=== PATIENT | female | born 1990 | race Caucasian/White ===

== ENCOUNTER → 2022-03-02 12:12 | Outpatient (CLI) | payer OTHER, SELFPAY ==
--- NOTE | 2022-03-02 | DI.US.S_ITS ---
PROCEDURE: US OB >= 14 WEEKS FETUS INDICATIONS: 20 WEEK ANATOMY OUTSIDE/PRIOR DATING DATA: Last menstrual period (LMP): October 02, 2021. LMP-based estimated date of delivery (KLAUS): July 09, 2022. First dating scan (date): March 02, 2022. Estimated date of delivery (KLAUS) from first dating scan: July 07, 2022. TECHNIQUE: Real-time scanning was performed of the fetus, with image documentation and biometric measurements. COMPARISON: None. FINDINGS: General: A single living intrauterine gestation is present. Presentation: Vertex. Placenta: Placental position is posterior , without previa. Amniotic fluid index: 14.8 cm, normal range is 5-24 cm. Single deepest vertical pocket is 5 cm. heart rate: 143 beats per minute. Maternal cervical canal: 3.4 cm long. Normal lower limit is 2.5 cm. biometrics: Biparietal diameter: 5.2 cm Head circumference: 19.6 cm Abdominal circumference: 16.6 cm Femur length: 3.8 cm Composite gestational age from present scan: 21 weeks, 6 days Estimated weight and percentile: 455 g; 59th percentile Anatomic survey: Neuro: Ventricles are non-dilated at less than 10 mm. Cisterna magna is normal at 3-11 mm. Cerebellum is normal in size and morphology. Nuchal skin fold: Normal at less than 6 mm between 14-21 weeks gestational age. Face: Nose and lips, facial profile are normal. Spine: No evidence for spina bifida. Heart: 4-chambered heart is present, with normal ventricular outflow tracts. Diaphragm: Diaphragm is intact. Stomach: Left-sided stomach is present. Kidneys: No hydronephrosis. Normal is less than 5 mm in 2nd trimester, less than 7 mm in 3rd trimester. Cord: 3-vessel cord has orthotopic insertion. Bladder: Normal in size. Extremities: All 4 extremities identified. IMPRESSION: Live single intrauterine gestation as detailed above. We strive to produce accurate, complete, and clear reports of imaging services. To assist us in improving patient care, this report was composed using standard report templates and voice recognition software. Therefore, it may contain abnormal punctuation, insertions and/or omissions. Occasional wrong-word or sound-alike substitutions may occur. Though we review the report and make efforts to correct it, we do recommend that the report be read carefully in proper context to recognize any text inaccuracies. Dictated by: Jesus Vasqeuz M.D. on 03/05/2022 at 13:57 Approved by: Jesus Vasquez M.D. on 03/05/2022 at 14:00
== END ==
PROVIDERS: Family Provider Family Medicine; Referring Provider Nurse Practitioner Obstetrics & Gynecology; Visit Provider Nurse Practitioner Obstetrics & Gynecology
DX: Z36.89 Encounter for other specified antenatal screening (principal); Z3A.21 21 weeks gestation of pregnancy
CPT/HCPCS: 76811

== ENCOUNTER → 2022-06-11 15:21 | Outpatient (ROUT) | payer OTHER, SELFPAY | PROVIDERS: Family Provider Family Medicine; Visit Provider Nurse Practitioner Obstetrics & Gynecology | DX: Z34.90 Encounter for supervision of normal pregnancy, unspecified, unspecified trimester (principal); Z36.85 Encounter for antenatal screening for Streptococcus B; Z3A.36 36 weeks gestation of pregnancy | CPT/HCPCS: 87081 ==

== ENCOUNTER 2022-07-10 03:47 | Inpatient (IN) | payer OTHER, SELFPAY ==
--- NOTE | 2022-07-10 04:11 | P.HPOB_ITS ---
OB HPI Date/Time Date of admission: 07/10/22 Date Patient Seen: 07/10/22 Time Patient Seen: 04:11 History of Present Condition Chief complaint: LABOR : 1 Para: 0 Estimated Date of Delivery: 07/09/22 Estimated Gestational Age (weeks): 40.1 Narrative: Amira Abraham is a 31 year old female @ [id number] by LMP and 10wk US who presents for evaluation of labor. She was having contractions ~five minutes apart tonight, had SROM of clear or slightly yellow tinged fluid at 0130. After SROM, contractions increased to every two to three minutes. Arrives with her [place]. Coping well and desires unmedicated labor. Uncomplicated course of care. History of Present care: good care, initiated at week # (10wk), number of visits (9) and pounds weight gain (40) Dating criteria: LMP confirmed by 1st trimester US Ultrasounds: normal 1st trimester US and normal mid trimester US Obstetrical complications: none Medical complications: none Preadmission Labs Blood type: O (+) positive -: Antibody screen: negative, GBS status: negative, HBsAG: negative, HIV: negative and RPR/VDLR: negative -: Chlamydia screen: not detected and Gonorrhea screen: not detected -: Rubella: immune and Varicella: immune HCT: 38.8 HCAB: negative PAP: Normal Cell-free DNA: Negative 1 hr GTT: 113 Evaluation Evaluation Baseline heart rate: 130 Variability: Moderate (11-25) monitor accelerations: Present Contraction Frequency (minutes): 2 Uterine Contraction Intensity: Moderate Status: Category ll (overall reassuring) Dilation (cm): 4 Effacement (%): 80 Dilation: 3-4 cm Effacement: >/=80% station: -2 Comments: initially 2 decelerations, toco not picking up, unable to assess, resolved with position change [facility] Medical History (Updated 07/10/22 @ 04:40 by Keyana Dias CNM) Anxiety Left knee injury Surgical History (Updated 07/10/22 @ 04:40 by Keyana Dias CNM) History of tonsillectomy Family History (Updated 07/10/22 @ 04:40 by Keyana Dias CNM) Mother Hypertension Social History (Updated 07/10/22 @ 04:40 by Keyana Dias CNM) marital status: household members: spouse lives independently: Yes housing: house Smoking Status: Never smoker Meds Home Medications and Allergies Home Medications Medication Instructions Recorded Confirmed Type #2 See Rx Instructions .Route .COMPLEX 07/10/22 07/10/22 History Allergies Allergy/AdvReac Type Severity Reaction Status Date / Time No Known Drug Allergies Allergy Unverified 07/10/22 04:42 OB Exam Resp Effort & Inspection: normal respiratory effort Auscultation: clear to auscultation bilaterally Cardio Rate: regular rate Rhythm: regular rhythm Presentation: vertex Objective Labs Result Diagrams: 07/10/22 04:30 07/10/22 04:30 Assessment and Plan Assessment and Plan Assessment and Plan narrative: Assessment: [place] Active labor SROM x 3 hrs without sx of infection No indication for GBS prophylaxis Elevated BP without dx of HTN Category I tracing Plan: Admit, routine orders with preeclampsia panel Intermittent auscultation Labor support PRN Reassess in 4 hours
[2022-07-10 04:25] LABS: COVID19 -Nasal RAPID Negative (Negative)
[2022-07-10 04:45] VITALS: BP 140/88
[2022-07-10 04:49] LABS: Add Manual Diff / Slide Review NO; Basophils Absolute Auto 0 /uL (0-100); Basophils Percent Auto 0.3 % (0-2); Eosinophils Absolute Auto 0 /uL (0-450); Eosinophils Percent Auto 0.2 % (2-4); Hematocrit 37.8 % (36-46); Hemoglobin 12.8 g/dL (12.0-16.0); Lymphocytes Absolute Auto 1100 /uL (1100-4500); Lymphocytes Percent Auto 9.7 % (25-40); Mean Corpuscular HGB Conc 33.8 % (30-36); Mean Corpuscular Hemoglobin 29.7 PG (26-34); Mean Corpuscular Volume 88.1 fL (80-100); Monocytes Absolute Auto 600 /uL (0-900); Monocytes Percent Auto 5.3 % (3-14); Neutrophils Absolute Auto 9800 /uL (1500-7000); Neutrophils Percent Auto 84.5 % (50-75); Platelet Count 260 X10^3/uL (150-400); Red Blood Cell Count 4.29 X10^6/uL (4.0-5.2); Red Cell Distribution Width 13.1 % (11.6-14.8); White Blood Cell Count 11.6 X10^3/uL (4.5-11.0)
[2022-07-10 04:57] LABS: Aspartate Aminotransferase 25 IU/L (14-36); BUN Creatinine Ratio 20.9 (6-22); Blood Urea Nitrogen 9 mg/dL (7-17); Estimated Glomerular Filt Rate > 60 mL/min (>60); Uric Acid 3.2 mg/dL (2.5-6.2)
[2022-07-10 05:06] LABS: Creatinine Urine Random 96.5 mg/dL; Protein (Total) Urine Random 7 mg/dL (0-12); Protein Creatinine Ratio Urine 0.07 GRAM/24H
--- NOTE | 2022-07-10 08:15 | PM.OBPRVD ---
Events: Meconium Stained Fluid (light, then terminal meconium) Labor & Delivery Delivery date: 07/10/22 Cervical ripening method: none Induction method: none Delivery monitor: external FHT Route of delivery: Episiotomy description: None L&D Laceration Description: Perineal - 2nd Degree Delivery repair: chromic (3.0) Quantitative Blood Loss: 375 Anesthesia Type: None Narrative: Amira coped well with an unmedicated labor. While in the tub, she felt rectal pressure and a spontaneous urge to push and was assisted out of the tub. Strong maternal efforts led to steady descent of the vertex. NSVB of a vigorous baby girl in ANDREZ position sommersaulted through a single loose nuchal. No additional maneuvers needed for delivery of the shoulders. [place] placed on maternal abdomen for drying and skin to skin. Pt declined active management of the third stage. Cord clamping was delayed until cessation of pulsation, clamped by SNM and cut by FOB. Cord blood was collected. Gentle traction of cord led to delivery of apparent intact Robertson placenta, membranes, and three vessel cord. Fundus was firm and midline immediately following delivery of placenta. Examination of the vagina/perineum revealed a midline second degree perineal laceration. The laceration was numbed using 1% lidocaine and repaired in the usual fashion with 3-0 chromic. During repair, increased uterine bleeding noted which resolved with fundal massage. Pitocin 10 units IM was subsequently given. QBL 375mL. Both mother and baby stable and skin to skin as I left the room. Baby 1: gender: Female Presentation: vertex Position: Left Occiput Anterior Placenta delivery description: Spontaneous Cord Vessel Description: 3 Vessels, Nuchal Cord and Loose score (1 min): 8 score (5 min): 9 weight: 3.581 kg Plan for aftercare: Routine care
[2022-07-10] MEDS: LANOLIN OINT 7 GM 1 APPLIC TOP (14:55)
[2022-07-10 14:56] VITALS: TEMP 36.7
[2022-07-10] MEDS: IBUPROFEN 600 MG TABLET PO ×2 (14:56→22:25)
[2022-07-10] MEDS: DERMOPLAST SPRAY 20% 60 ML 1 SPRAY TOP (14:57)
[2022-07-11] MEDS: IBUPROFEN 600 MG TABLET PO (04:58)
--- NOTE | 2022-07-11 06:34 | PM.OBDS.1 ---
Discharge Providers Provider Date of admission: 07/10/22 03:47 Discharge Date: 07/11/22 Consults: 07/11/22 08:06 Consult to Extension Division Director Routine Comment: Discharge provider: Keyana Dias CNM Summary Hospital Course Date Patient Seen: 07/11/22 Time Patient Seen: 06:34 Diagnoses: O70.1, Term NSVB w/ 2nd degree perineal laceration Hospital Course: PPD1 s/p NSVB w/ 2nd degree perineal laceration. Has been voiding, ambulating and independently. Tolerating a general diet. Has some tailbone pain that is well controlled with PO medication and positioning. Vaginal bleeding is light, without clots. Peripartum Data Delivery Method: Natural Vaginal Laceration Description: Perineal - 2nd Degree Episiotomy description: None Procedures: O70.1 complications: none 1: Gender: Female Disposition of : home Discharge Diagnosis (1) Second degree perineal laceration during delivery: Status: Acute Status at Discharge Cognitive/behavioral status at discharge: oriented and calm Functional status at discharge: independent ambulation Overall status at discharge: patient is progressing back to baseline Time Spent with Patient Time attestation: Total time spent providing and/or coordinating discharge services: Objective Labs Result Diagrams: 07/10/22 04:30 07/10/22 04:30 Exam Vital Signs (past 8 hours): BP 116/78mmHg, HR 81bpm, RR 16/min, T 98.5C Temporal Presentation: vertex Other: Fundus firm @ U, lochia light, no clots, perineum well approximated. Discharge Plan Discharge Plan Patient Disposition: Home Discharge orders & Medications Prescriptions: New acetaminophen 325 mg Tablet 650 mg PO Q6HR PRN (Reason: Pain, Mild (1-3)) 14 Days Qty: 60 0RF ibuprofen 600 mg Tablet 600 mg PO Q6HR PRN (Reason: Pain, Mild (1-3)) 14 Days Qty: 60 0RF Continued #2 See Rx Instructions .ROUTE .COMPLEX Rx Instructions: Take as prescribed Follow up/Referrals: Keyana Dias CNM [Advanced Weatherization Specialist] - (Follow-up 07/26/22 @ 1145 by Telehealth Follow-up 08/22/22 @ 0941 in office) Diet/Activity/Treatments Diet: Diet as Tolerated and Regular Activity: pelvic rest x 6 weeks Skin/Wound/Dressing Care Report to your healthcare provider any signs of infection, such as:: chills, fever, increased pain, unusual drainage and unusual redness Visit Report/Discharge Packet Instructions: DI for Depression
[2022-07-11 10:20] VITALS: BP 113/78; PULSE 79; RESP 16; TEMP 36.6
== END 2022-07-11 10:56 | disposition home or self-care (01) | DRG 807 ==
PROVIDERS: Admitting Provider Nurse Practitioner Obstetrics & Gynecology; Family Provider Family Medicine; Referring Provider Nurse Practitioner Obstetrics & Gynecology; Visit Provider Nurse Practitioner Obstetrics & Gynecology
DX: O42.02 Full-term premature rupture of membranes, onset of labor within 24 hours of rupture (principal); Z37.0 Single live birth; O99.892 Other specified diseases and conditions complicating childbirth; R03.0 Elevated blood-pressure reading, without diagnosis of hypertension; Z3A.40 40 weeks gestation of pregnancy; O70.1 Second degree perineal laceration during delivery; Z20.822 Contact with and (suspected) exposure to COVID-19
CPT/HCPCS: 59050; 82570; 84156; 84450; 84550; 85025; 86850; 86900; 86901; 87635; C9803; G0379